=== PATIENT | male | born 1995 | race Two or more races ===

== ENCOUNTER 2021-07-18 12:49 | Emergency (ER) | payer OTHER ==
[~2021-07-18] VITALS: Ht 188 cm; Wt 65.8 kg
[2021-07-18] MEDS ORDERED: LANTUS SOL100 UNIT/1 SQ (12:59)
[2021-07-18] MEDS ORDERED: HUMALOG100 UNIT/2 SQ (13:00)
[2021-07-18] MEDS ORDERED: DOXYCYCLINE MO100 M1 PO (16:40)
[2021-07-18] MEDS ORDERED: INTESTINEX680 M1 PO (16:40)
== END 2021-07-18 17:45 ==
LOC: ER 12:49
DX: E13.641 Other specified diabetes mellitus with hypoglycemia with coma (principal); L03.115 Cellulitis of right lower limb; Z03.818 Encounter for observation for suspected exposure to other biological agents ruled out